=== PATIENT | female | born 1955 | race Caucasian/White ===

== ENCOUNTER → 2019-06-27 | Outpatient (CLI) | payer MEDICARE | LOC: M.RAD 05-30 13:30 | DX: E28.39 Other primary ovarian failure (principal); M54.5 Low back pain; Z78.0 Asymptomatic menopausal state ==

== ENCOUNTER → 2019-08-02 | Outpatient (CLI) | payer MEDICARE | LOC: M.MRI 15:37 | DX: S43.431A Superior glenoid labrum lesion of right shoulder, initial encounter (principal); M19.011 Primary osteoarthritis, right shoulder; M75.101 Unspecified rotator cuff tear or rupture of right shoulder, not specified as traumatic; M65.811 Other synovitis and tenosynovitis, right shoulder; X58.XXXA Exposure to other specified factors, initial encounter; Y93.89 Activity, other specified; Y92.89 Other specified places as the place of occurrence of the external cause; Y99.8 Other external cause status ==